=== PATIENT | male | born 1965 | race Caucasian/White ===

== ENCOUNTER 2018-01-23 08:08 | Emergency (ER) | payer MEDICARE, MEDICAID ==
--- NOTE | 2018-01-23 08:49 | XRAY Report ---
Procedure Date: 01/23/2018 Accession Number: [id number] / [id number] Procedure: XR - Hand 3 View RT CPT Code: FULL RESULT: EXAM: RIGHT HAND RADIOGRAPHY EXAM DATE: 01/23/2018 08:41 AM. CLINICAL HISTORY: Injury to fingers and continuing fourth and fifth digit pain. COMPARISON: None. TECHNIQUE: 3 views. FINDINGS: Bones: Normal. No fractures or bone lesions. Joints: Normal. No subluxations. Soft Tissues: Normal. No soft tissue swelling. IMPRESSION: Normal hand radiography. No acute osseous abnormality. RADIA
--- NOTE | 2018-01-23 09:00 | ED Physician Documentation ---
PD HPI UPPER EXT INJURY - Stated complaint Stated Complaint: R HAND LAC - Chief complaint Chief Complaint: Ext Problem - History obtained from History obtained from: Patient - History of Present Illness Location: Right, Hand Type of injury: Twist Where injury occurred: Home Timing - onset: Today Timing - duration: Minutes Timing - details: Abrupt onset, Still present Improved by: Rest, Immobilization Worsened by: Moving, Palpating Associated symptoms: Swelling Contributing factors: No: Anticoagulated Similar symptoms before: Has not had sx before Recently seen: Not recently seen - Additonal information Additional information: 52-year-old male is visiting from [place] helping do some things around his parents house when he was using a drill he had the carlos in the drill and the carlos is attached to the cord and he pressed the power twisting the cord around his hand. He has pain and swelling to the joints of the 4th and 5th planges on the right hand. Review of Systems Constitutional: denies: Fever Respiratory: denies: Dyspnea GI: denies: Vomiting Musculoskeletal: reports: Extremity pain. denies: Neck pain, Back pain Neurologic: denies: Generalized weakness, Focal weakness, Numbness PD PAST MEDICAL HISTORY - Past Medical History Past Medical History: Yes Cardiovascular: Deep vein thrombosis, [place] Respiratory: Asthma Neuro: None Endocrine/Autoimmune: None GI: None : None Psych: Depression, Bipolar disorder Musculoskeletal: None Derm: None - Past Surgical History Past Surgical History: Yes General: Colonoscopy Ortho: Knee replacement, Shoulder arthroplasty - Present Medications Home Medications: Ambulatory Orders Medication Instructions Recorded Confirmed Lorazepam [Ativan] 1 mg PO DAILY 02/01/15 02/01/15 Mupirocin 1 gm TP TID 7 Days oint...g. 02/01/15 Omeprazole [Prilosec] 40 mg PO DAILY 02/01/15 02/01/15 Valacyclovir HCl [Valtrex] 500 mg PO BID 02/01/15 02/01/15 Verapamil HCl [Verapamil ER] 240 mg PO BID 02/01/15 02/01/15 Warfarin [Coumadin] 5 mg PO DAILY 02/01/15 02/01/15 lamoTRIgine [Lamictal] 150 mg PO BID 02/01/15 02/01/15 - Allergies Allergies/Adverse Reactions: Allergies Allergy/AdvReac Type Severity Reaction Status Date / Time cefazolin sodium * Allergy Rash Verified 02/01/15 10:52 [From Ancef] diphenhydramine HCl * Allergy Unknown Verified 02/01/15 10:52 [From Benadryl] levofloxacin [From Levaquin] Allergy Nausea Verified 02/01/15 10:52 morphine Allergy Hallucinati Verified 02/01/15 10:52 ons penicillin * [penicillin] Allergy Rash Verified 02/01/15 10:52 sertraline [From Zoloft] Allergy Unknown Verified 01/23/18 08:23 ketorolac [From Toradol] AdvReac Hives Verified 01/23/18 08:23 depomedrol Allergy Itching Uncoded 02/01/15 10:52 - Social History Does the pt smoke?: Yes Smoking Status: Current every day smoker Does the pt drink ETOH?: No Does the pt have substance abuse?: No - Immunizations Immunizations are current?: Yes - POLST Patient has POLST: No PD ED PE NORMAL - Vitals Vital signs reviewed: Yes (hypertensive) - General General: Alert and oriented X 3, No acute distress, Well developed/nourished - HEENT HEENT: Atraumatic, PERRL - Respiratory Respiratory: No respiratory distress - Derm Derm: Normal color, Warm and dry, No rash - Extremities Extremities: No deformity, No edema, Other (There is mild swelling to the right 4th and 5th digits of the right hand over the PIP joints. He is able to flex and extend at all joints and has shaunna senstaion. Distal n/v is intact and there is no injury to the naill. ) Results - Vitals Vitals: Vital Signs - 24 hr 01/23/18 01/23/18 08:19 09:41 Temperature 36.2 C L 36.5 C Heart Rate 84 74 Respiratory 16 15 Rate Blood Pressure 124/83 H 113/72 O2 Saturation 99 100 Oxygen O2 Source Room air - Rads (name of study) hand Radiology: Prelim report reviewed (Impression: Normal hand radiography. No acute osseous abnormality.), EMP read indepedently, See rad report Procedures - Splint (location) right hand Splint applied by: Tech Type of splint: Fiberglass, Ulnar gutter Other: Patient tolerated well, No complications, Neurovascular intact PD MEDICAL DECISION MAKING - ED course Complexity details: reviewed results, re-evaluated patient, considered differential, d/w patient ED course: 52-year-old male with a injury to his right hand appears to have no fracture from the acute wrapping of the cord around his hand. He is placed into an ulnar gutter splint for comfort and will follow-up as needed. - Sepsis Event Vital Signs: Vital Signs - 24 hr 01/23/18 01/23/18 08:19 09:41 Temperature 36.2 C L 36.5 C Heart Rate 84 74 Respiratory 16 15 Rate Blood Pressure 124/83 H 113/72 O2 Saturation 99 100 Oxygen O2 Source Room air Departure - Departure Disposition: 01 Home, Self Care Clinical Impression: Sprain of right hand Qualifiers: Encounter type: initial encounter Qualified Code(s): S63.91XA - Sprain of unspecified part of right wrist and hand, initial encounter Condition: Stable Instructions: ED Sprain Finger Follow-Up: [facility] [Provider Group] Discharge Date/Time: 01/23/18 09:47
[2018-01-23 09:42] VITALS: BP 113/72
== END 2018-01-23 09:47 | disposition home or self-care (01) ==
LOC: ED 08:08
DX: S63.91XA Sprain of unspecified part of right wrist and hand, initial encounter (principal); F17.200 Nicotine dependence, unspecified, uncomplicated; W23.0XXA Caught, crushed, jammed, or pinched between moving objects, initial encounter; Y93.89 Activity, other specified; Y92.009 Unspecified place in unspecified non-institutional (private) residence as the place of occurrence of the external cause
CPT/HCPCS: 29125; 99282; 99283

== ENCOUNTER 2019-01-11 10:06 | Outpatient (CLI) | payer MEDICARE, MEDICAID | END 2019-01-11 10:07 | disposition short-term general hospital (02) | LOC: EMS 10:06 | PROVIDERS: ATTEND Surgery | DX: R07.89 Other chest pain (principal); R00.0 Tachycardia, unspecified | CPT/HCPCS: A0425; A0427 ==

== ENCOUNTER 2019-01-25 10:15 | Outpatient (CLI) | payer MEDICARE, MEDICAID | END 2019-01-25 10:16 | disposition EMS.NT | LOC: EMS 10:15 | PROVIDERS: ATTEND Surgery | DX: R42 Dizziness and giddiness (principal) ==

== ENCOUNTER 2019-02-01 08:09 | Outpatient (CLI) | payer MEDICARE, MEDICAID | END 2019-02-01 08:10 | disposition short-term general hospital (02) | LOC: EMS 08:09 | PROVIDERS: ATTEND Surgery | DX: R07.9 Chest pain, unspecified (principal); R00.0 Tachycardia, unspecified; R06.02 Shortness of breath | CPT/HCPCS: A0425; A0427 ==

== ENCOUNTER 2019-02-19 10:27 | Outpatient (CLI) | payer MEDICARE, MEDICAID | END 2019-02-19 10:28 | disposition home or self-care (01) | LOC: LAB 10:27 | PROVIDERS: ATTEND Internal Medicine Cardiovascular Disease | DX: I47.1 Supraventricular tachycardia (principal) | CPT/HCPCS: 36415; 84443 ==